=== PATIENT | male | born 1955 | race African-American/Black ===

== ENCOUNTER → 2017-07-21 | Outpatient (CLI) | payer MEDICARE, MEDICAID ==
[~2017-07-21] MED LIST: ASPI-1159 PO; ATOR10TA69 PO; CLOP75TA33 PO; CYM20 PO; FOLI-43 PO; IBUP-2030 PO; LOSA25TA12 PO; MAGN400C PO; MECL-109 PO; MEGE400O PO; METO-293 PO; METO50TA5 PO; MIRT15TA6 PO; OXYB5TAB11 PO; TOLT4CAP PO
[2017-07-21 14:55] LABS: BASOPHILS % 0.3 % (0.0-2.0); EOSINOPHILS % 3.2 % (0.0-5.0); HEMATOCRIT. 36.5 % (42.0-52.0); HEMOGLOBIN. 12.1 g/dL (14.0-18.0); LYMPHOCYTES % 13.8 % (20.0-50.0); MEAN CORPUSCULAR HEMOGLOBIN 28.6 pg (28.0-32.0); MEAN PLATELET VOLUME 8.4 fl (7.4-10.4); MONOCYTES % 7.1 % (2.0-8.0); NEUTROPHILS % 75.6 % (40.0-76.0); PLATELET 246 x1000/uL (130-400); RED BLOOD CELL COUNT 4.24 mill/uL (4.7-6.1); RED CELL DISTRIBUTION WIDTH 15.9 % (11.6-14.6)
[2017-07-21 15:14] LABS: CARBON DIOXIDE 22 mEq/L (21-32); CHLORIDE 111 mEq/L (98-107)
[2017-07-21 15:46] LABS: FOLIC ACID (FOLATE) SERUM > 20.00 ng/mL (>5.38)
== END | disposition home or self-care (01) ==
LOC: LAB 14:03
PROVIDERS: ATTEND Internal Medicine Nephrology
DX: N18.9 Chronic kidney disease, unspecified (principal); Z79.899 Other long term (current) drug therapy
CPT/HCPCS: 36415; 80053; 82746; 83036; 83735; 84443; 85025

== ENCOUNTER 2021-12-08 22:07 | Inpatient (IN) | payer MEDICARE, MEDICAID ==
[~2021-12-08] VITALS: Ht 172.7 cm; Wt 97.5 kg
[~2021-12-08 22:07] MED LIST changes: -ASPI-1159 PO; +ASPI-1497 PO; +LORA1TAB PO; -LOSA25TA12 PO; +LOSA25TA26 PO; -MECL-109 PO; +MECL-159 PO; +METO-539 PO; -METO50TA5 PO; +MIRT-89 PO; -MIRT15TA6 PO; -OXYB5TAB11 PO; +OXYB5TAB16 PO
[2021-12-08] MEDS ORDERED: ONDANSETRON HCL 4MG/2ML INJ IV STA (22:53)
[2021-12-08] MEDS ORDERED: MORPHINE SULFATE 4 MG/ML CPJ (NOT FOR IM USE) IV STA (22:53)
[2021-12-08] MEDS ORDERED: SODIUM CHLORIDE 0.9% 1000ML BAG (SEPSIS BOLUS) IV ONE (23:00)
[2021-12-08] MEDS ORDERED: VANCOMYCIN 1G PREMIX 200 ML IV ONE (23:00)
[2021-12-08] MEDS ORDERED: METRONIDAZOLE 500 MG PREMIX 100 ML IV ONE (23:00)
[2021-12-08] MEDS ORDERED: PIPERACILLIN/TAZ 3.375G PREMIX 50 ML IV ONE (23:00)
[2021-12-09 01:09] LABS: CHLORIDE 124 mEq/L (98-107)
[2021-12-09 01:11] LABS: BASOPHILS % 0.4 % (0.0-2.0); EOSINOPHILS % 1.3 % (0.0-5.0); LYMPHOCYTES % 7.8 % (20.0-50.0); MEAN CORPUSCULAR VOLUME 94.7 fL (80.0-94.0); MEAN PLATELET VOLUME 8.8 fl (7.4-10.4); MONOCYTES % 14.3 % (2.0-8.0); NEUTROPHILS % 76.2 % (40.0-76.0); PLATELET 283 x1000/uL (130-400); RED CELL DISTRIBUTION WIDTH 17.5 % (11.6-14.6)
[2021-12-09] MEDS ORDERED: DEXTROSE 50% WATER 50ML SYRINGE IV ONE (02:15)
[2021-12-09] MEDS ORDERED: CALCIUM CHLORIDE 1GM/10ML SYR IV ONE (02:15)
[2021-12-09] MEDS ORDERED: INSULIN REGULAR (HUMULIN R) 300UNITS/3ML VIAL IV ONE (02:15)
[2021-12-09] MEDS ORDERED: SODIUM BICARBONATE 8.4% 1 MEQ/ML 50ML SYR IV ONE (02:15)
[2021-12-09 06:12] LABS: CLARITY URINE CLOUDY (CLEAR); COLOR URINE YELLOW (YELLOW); KETONES URINE TRACE (NEGATIVE); LEUKOCYTE ESTERASE URINE 3+ (NEGATIVE); NITRITE URINE POSITIVE (NEGATIVE); OCCULT BLOOD URINE 1+ (NEGATIVE); PROTEIN URINE 2+ (NEGATIVE); SPECIFIC GRAVITY URINE 1.017 (1.005-1.030); UROBILINOGEN URINE 0.2 E.U./dL (0.2-1.0)
[2021-12-09] MEDS ORDERED: ONDANSETRON HCL 4MG/2ML INJ IV PRN (07:15)
[2021-12-09] MEDS ORDERED: DIPHENHYDRAMINE 50MG/ML VIAL IV PRN (07:15)
[2021-12-09] MEDS ORDERED: GUAIFENESIN 200MG/10ML SUGAR FREE UDC PO PRN (07:15)
[2021-12-09] MEDS ORDERED: CLONIDINE 0.1MG TABLET PO PRN (07:15)
[2021-12-09] MEDS ORDERED: SODIUM POLYSTYRENE SULFONATE 15 G/60 ML BOT PO NR (07:15)
[2021-12-09] MEDS ORDERED: MORPHINE SULFATE 2 MG/ML CPJ (NOT FOR IM USE) IV PRN (07:15)
[2021-12-09] MEDS ORDERED: SODIUM BICARBONATE 8.4% 1 MEQ/ML 50ML SYR IV NR (07:15)
[2021-12-09] MEDS ORDERED: IPRATROPIUM/ALBUTEROL 0.5-3(2.5)MG/3ML NEB NEB PRN (07:15)
[2021-12-09] MEDS ORDERED: TRAMADOL 50MG TABLET PO PRN (07:15)
[2021-12-09] MEDS ORDERED: DOCUSATE SODIUM 100MG CAPSULE PO PRN (07:15)
[2021-12-09] MEDS ORDERED: NITROGLYCERIN 0.4MG TABLET SL SL PRN (07:15)
[2021-12-09] MEDS ORDERED: MAGNESIUM/ALUMINUM HYDROXIDE/SIMETHICONE 30ML UDC PO PRN (07:15)
[2021-12-09] MEDS ORDERED: ACETAMINOPHEN 325MG TABLET PO PRN (07:15)
[2021-12-09] MEDS ORDERED: NALOXONE HCL 0.4MG/ML VIAL IV PRN (08:00)
[2021-12-09] MEDS: ENOXAPARIN 40MG/0.4ML SYR SUBCUT SCH (08:00)
[2021-12-09] MEDS ORDERED: VANCOMYCIN 1G PREMIX 200 ML IV NR (08:15)
[2021-12-09] MEDS: CITRIC ACID/SODIUM CITRATE SOLN 30ML UDC PO SCH ×3 (08:29→17:45)
[2021-12-09] MEDS ORDERED: PIPERACILLIN/TAZ 3.375G PREMIX 50 ML IV SCH (09:00)
[2021-12-09 10:47] LABS: FOLIC ACID (FOLATE) SERUM 9.1 ng/mL (>5.38)
[2021-12-09 11:00] VITALS: BP 109/54
[2021-12-09 11:30] VITALS: BP 109/54
[2021-12-09 14:33] LABS: *AMPHETAMINES SCREEN URINE NEGATIVE (NEGATIVE); *BARBITURATES SCREEN URINE NEGATIVE (NEGATIVE); *BENZODIAZEPINES SCREEN URINE NEGATIVE (NEGATIVE); *COCAINE SCREEN URINE NEGATIVE (NEGATIVE); CANNABINOID URINE SCREEN NEGATIVE (NEGATIVE); METHADONE URINE SCREEN NEGATIVE (NEGATIVE); OPIATES URINE SCREEN PRESUMTIVE POSITIVE (NEGATIVE); PHENCYCLIDINE URINE SCREEN NEGATIVE (NEGATIVE)
[2021-12-09 15:47] LABS: CREATINE KINASE 207 IU/L (39-308)
[2021-12-09 16:00] VITALS: BP 138/72
[2021-12-09] MEDS ORDERED: LISI-186 MT (16:15)
[2021-12-09] MEDS ORDERED: [UNRECOGNIZED DRUG - CODE] IM (16:15)
[2021-12-09] MEDS ORDERED: ATOR10TA69 MT (16:15)
[2021-12-09] MEDS ORDERED: INSLIS SUBCUT (16:15)
[2021-12-09] MEDS ORDERED: FAMO40TA7 MT (16:15)
[2021-12-09] MEDS ORDERED: AMLO10TA80 PO (16:15)
[2021-12-09] MEDS ORDERED: SODI100G3 PO (16:15)
[2021-12-09] MEDS ORDERED: HYDR12.54 MT (16:15)
[2021-12-09] MEDS ORDERED: DEXTROSE 50% WATER 50ML SYRINGE IV PRN (17:00)
[2021-12-09] MEDS: INSULIN LISPRO 100 UNITS/ML SUBCUT SCH ×2 (17:20→21:00)
[2021-12-09] MEDS: BLOOD SUGAR DIAGNOSTIC STRIP TEST SCH ×2 (17:43→21:51)
[2021-12-09] MEDS ORDERED: PNEUMOCOCCAL 23-VAL P-SAC VAC 0.5 ML IM ONE (18:45)
[2021-12-09] MEDS ORDERED: INFLUENZA VACCINE 05/PF 0.5 ML SYRINGE IM ONE (18:45)
[2021-12-09 20:00] VITALS: BP 114/59
[2021-12-09] MEDS ORDERED: ZOLPIDEM TARTRATE 5MG TABLET PO PRN (21:00)
[2021-12-09] MEDS: PIPERACILLIN/TAZOBACTAM 3.375 G in DEXTROSE 5% WATER 50 ML IV SCH (21:49)
[2021-12-09] MEDS: SODIUM CHLORIDE 0.45% 1,000 ML IV NR (21:50)
[2021-12-09] MEDS: FAMOTIDINE 20MG TABLET PO SCH (21:50)
[2021-12-09 22:21] LABS: CREATINE KINASE 194 IU/L (39-308)
[2021-12-09 22:22] LABS: CREATINE KINASE MB FRACTION 2.8 ng/mL (0.5-3.6)
[2021-12-10] VITALS: BP 111/63
[2021-12-10 04:00] VITALS: BP 126/69
[2021-12-10] MEDS: INSULIN LISPRO 100 UNITS/ML SUBCUT SCH ×4 (07:20→20:49)
[2021-12-10 08:00] VITALS: BP 132/68
[2021-12-10 08:05] LABS: CHLORIDE 129 mEq/L (98-107)
[2021-12-10] MEDS: BLOOD SUGAR DIAGNOSTIC STRIP TEST SCH ×4 (08:15→20:48)
[2021-12-10 08:20] LABS: HEMATOCRIT. 30.7 % (42.0-52.0); HEMOGLOBIN. 10.3 g/dL (14.0-18.0); MEAN CORPUSCULAR HEMOGLOBIN 30.7 pg (28.0-32.0); MEAN CORPUSCULAR VOLUME 91.5 fL (80.0-94.0); MEAN PLATELET VOLUME 8.8 fl (7.4-10.4); PLATELET 231 x1000/uL (130-400); RED BLOOD CELL COUNT 3.35 mill/uL (4.7-6.1); RED CELL DISTRIBUTION WIDTH 16.7 % (11.6-14.6)
[2021-12-10] MEDS: ENOXAPARIN 40MG/0.4ML SYR SUBCUT SCH (09:53)
[2021-12-10] MEDS: PIPERACILLIN/TAZOBACTAM 3.375 G in DEXTROSE 5% WATER 50 ML IV SCH ×2 (09:54→21:53)
[2021-12-10] MEDS: CITRIC ACID/SODIUM CITRATE SOLN 30ML UDC PO SCH ×3 (09:54→16:27)
[2021-12-10] MEDS: SODIUM CHLORIDE 0.45% 1,000 ML IV NR ×2 (09:56→16:23)
[2021-12-10 16:00] VITALS: BP 124/66
[2021-12-10 17:11] LABS: PLATELET ESTIMATE NORMAL
[2021-12-10 20:00] VITALS: BP 113/49
[2021-12-10] MEDS: FAMOTIDINE 20MG TABLET PO SCH (21:53)
[2021-12-11] VITALS: BP 137/64
[2021-12-11] MEDS ORDERED: SODIUM POLYSTYRENE SULFONATE 15 G/60 ML BOT PO NR ×2 (01:00→15:30)
[2021-12-11] MEDS: ACETAMINOPHEN 325MG TABLET PO PRN (01:05)
[2021-12-11] MEDS: DEXTROSE 5% WATER 1,000 ML IV SCH ×4 (01:05→21:43)
[2021-12-11 04:00] VITALS: BP 117/51
[2021-12-11] MEDS: INSULIN LISPRO 100 UNITS/ML SUBCUT SCH ×4 (06:36→21:44)
[2021-12-11] MEDS: BLOOD SUGAR DIAGNOSTIC STRIP TEST SCH ×4 (06:36→21:20)
[2021-12-11 08:00] VITALS: BP 143/45
[2021-12-11] MEDS: PIPERACILLIN/TAZOBACTAM 3.375 G in DEXTROSE 5% WATER 50 ML IV SCH ×2 (09:08→21:43)
[2021-12-11] MEDS: ENOXAPARIN 40MG/0.4ML SYR SUBCUT SCH (09:10)
[2021-12-11] MEDS: CITRIC ACID/SODIUM CITRATE SOLN 30ML UDC PO SCH ×3 (09:10→16:53)
[2021-12-11 12:00] VITALS: BP 127/66
[2021-12-11 16:00] VITALS: BP 140/55
[2021-12-11 20:00] VITALS: BP 144/60
[2021-12-11] MEDS: FAMOTIDINE 20MG TABLET PO SCH (21:43)
[2021-12-12 04:00] VITALS: BP 148/65
[2021-12-12] MEDS: DEXTROSE 5% WATER 1,000 ML IV SCH ×2 (04:00→15:11)
[2021-12-12] MEDS: BLOOD SUGAR DIAGNOSTIC STRIP TEST SCH ×4 (06:41→20:41)
[2021-12-12] MEDS: INSULIN LISPRO 100 UNITS/ML SUBCUT SCH ×4 (06:41→20:41)
[2021-12-12] MEDS: ENOXAPARIN 40MG/0.4ML SYR SUBCUT SCH (07:57)
[2021-12-12 08:00] VITALS: BP 149/71
[2021-12-12] MEDS: CITRIC ACID/SODIUM CITRATE SOLN 30ML UDC PO SCH ×3 (08:58→17:32)
[2021-12-12] MEDS: PIPERACILLIN/TAZOBACTAM 3.375 G in DEXTROSE 5% WATER 50 ML IV SCH ×2 (08:58→20:47)
[2021-12-12 09:30] LABS: HEMATOCRIT. 28.2 % (42.0-52.0); HEMOGLOBIN. 9.3 g/dL (14.0-18.0); MEAN CORPUSCULAR VOLUME 90.7 fL (80.0-94.0); MEAN PLATELET VOLUME 8.9 fl (7.4-10.4); PLATELET 216 x1000/uL (130-400); RED CELL DISTRIBUTION WIDTH 16.9 % (11.6-14.6)
[2021-12-12 12:00] VITALS: BP 138/75
[2021-12-12] MEDS ORDERED: VANCOMYCIN 1G PREMIX 200 ML IV NR (15:00)
[2021-12-12 16:00] VITALS: BP 117/65
[2021-12-12 16:24] LABS: PLATELET ESTIMATE NORMAL
[2021-12-12 20:00] VITALS: BP 126/65
[2021-12-12] MEDS: FAMOTIDINE 20MG TABLET PO SCH (20:47)
[2021-12-13] VITALS: BP 139/71
[2021-12-13 04:00] VITALS: BP 131/71
[2021-12-13] MEDS: BLOOD SUGAR DIAGNOSTIC STRIP TEST SCH ×4 (06:23→21:30)
[2021-12-13] MEDS: INSULIN LISPRO 100 UNITS/ML SUBCUT SCH ×4 (07:20→21:00)
[2021-12-13 08:00] VITALS: BP 116/47
[2021-12-13] MEDS: ENOXAPARIN 30MG/0.3ML SYR SUBCUT SCH (09:15)
[2021-12-13] MEDS: CITRIC ACID/SODIUM CITRATE SOLN 30ML UDC PO SCH ×3 (09:15→17:37)
[2021-12-13] MEDS: PIPERACILLIN/TAZOBACTAM 3.375 G in DEXTROSE 5% WATER 50 ML IV SCH ×2 (09:15→21:23)
[2021-12-13 12:00] VITALS: BP 114/41
[2021-12-13] MEDS: DEXTROSE 5% WATER 1,000 ML IV SCH ×3 (12:39→21:23)
[2021-12-13 16:00] VITALS: BP 122/65
[2021-12-13 20:00] VITALS: BP 133/54
[2021-12-13] MEDS: FAMOTIDINE 20MG TABLET PO SCH (21:23)
[2021-12-14] VITALS: BP 128/53
[2021-12-14 04:00] VITALS: BP 132/58
[2021-12-14] MEDS: DEXTROSE 5% WATER 1,000 ML IV SCH ×2 (05:51→17:27)
[2021-12-14] MEDS: BLOOD SUGAR DIAGNOSTIC STRIP TEST SCH ×4 (06:08→21:00)
[2021-12-14] MEDS: INSULIN LISPRO 100 UNITS/ML SUBCUT SCH ×4 (06:40→21:00)
[2021-12-14 08:00] VITALS: BP 111/54
[2021-12-14] MEDS: PIPERACILLIN/TAZOBACTAM 3.375 G in DEXTROSE 5% WATER 50 ML IV SCH ×2 (09:18→20:17)
[2021-12-14] MEDS: ENOXAPARIN 30MG/0.3ML SYR SUBCUT SCH (09:18)
[2021-12-14] MEDS: CITRIC ACID/SODIUM CITRATE SOLN 30ML UDC PO SCH ×3 (09:18→17:27)
[2021-12-14 12:00] VITALS: BP 116/56
[2021-12-14] MEDS ORDERED: KCL 10MEQ/50ML PREMIX 50 ML IV SCH (14:00)
[2021-12-14 16:00] VITALS: BP 125/62
[2021-12-14 20:00] VITALS: BP 111/64
[2021-12-14] MEDS: FAMOTIDINE 20MG TABLET PO SCH (20:17)
[2021-12-14] MEDS: ACETAMINOPHEN 325MG TABLET PO PRN (23:48)
[2021-12-15] VITALS: BP 115/66
[2021-12-15] MEDS: DEXTROSE 5% WATER 1,000 ML IV SCH ×2 (01:03→14:55)
[2021-12-15 04:00] VITALS: BP 129/70
[2021-12-15] MEDS: INSULIN LISPRO 100 UNITS/ML SUBCUT SCH ×2 (06:20→12:20)
[2021-12-15] MEDS: BLOOD SUGAR DIAGNOSTIC STRIP TEST SCH ×2 (06:20→12:20)
[2021-12-15 08:46] VITALS: BP 129/88
[2021-12-15] MEDS: CITRIC ACID/SODIUM CITRATE SOLN 30ML UDC PO SCH ×2 (10:49→14:56)
[2021-12-15] MEDS: ENOXAPARIN 30MG/0.3ML SYR SUBCUT SCH (10:49)
[2021-12-15 12:24] VITALS: BP 128/59
[2021-12-15 14:07] VITALS: BP 128/59
== END 2021-12-15 16:33 | disposition home or self-care (01) | DRG 682 ==
LOC: ER 22:07 → MICUSO 12-09 03:46 → EDBEDREQTM 12-09 04:07 → EDBEDREQ 12-09 04:07 → 6WST 12-09 11:27
PROVIDERS: ADMIT Internal Medicine; ATTEND Internal Medicine
DX: N17.0 Acute kidney failure with tubular necrosis (principal); J18.9 Pneumonia, unspecified organism; G92.8 Other toxic encephalopathy; N39.0 Urinary tract infection, site not specified; E87.0 Hyperosmolality and hypernatremia; E87.2 Acidosis; C64.9 Malignant neoplasm of unspecified kidney, except renal pelvis; I12.0 Hypertensive chronic kidney disease with stage 5 chronic kidney disease or end stage renal disease; N18.5 Chronic kidney disease, stage 5; E87.5 Hyperkalemia; D63.8 Anemia in other chronic diseases classified elsewhere; E78.00 Pure hypercholesterolemia, unspecified; J45.909 Unspecified asthma, uncomplicated; Z20.822 Contact with and (suspected) exposure to COVID-19; K57.90 Diverticulosis of intestine, part unspecified, without perforation or abscess without bleeding; E87.6 Hypokalemia; C61 Malignant neoplasm of prostate; Z85.038 Personal history of other malignant neoplasm of large intestine; Z93.3 Colostomy status; Z91.018 Allergy to other foods; Z79.899 Other long term (current) drug therapy; Z79.82 Long term (current) use of aspirin; Z86.73 Personal history of transient ischemic attack (TIA), and cerebral infarction without residual deficits; Z90.5 Acquired absence of kidney; R74.8 Abnormal levels of other serum enzymes
CPT/HCPCS: 36415; 71045; 74176; 80048; 80053; 80061; 80202; 80305; 81003; 82550; 82553; 82607; 82728; 82746; 82962; 83036; 83540; 83550; 83605; 83735; 84100; 84145; 84443; 84484; 85025; 87426; 90686; 90732; 93005; 93306; 93970; 97162; 97166; 99291; J1650; J1815; J2270; J2405; J2543; J3370; J3480; J3490; J7030; J7060; J7070

== ENCOUNTER 2024-07-17 19:37 | Inpatient (IN) | payer MEDICARE, MEDICAID ==
[~2024-07-17] VITALS: Ht 172.7 cm; Wt 78.7 kg
[~2024-07-17 19:37] MED LIST changes: -ATOR10TA69 PO; +CHOL500051 PO; -CLOP75TA33 PO; -CYM20 PO; +FAMO20TA8 PO; +FERR-63 PO; +HYDR12.54 PO; -IBUP-2030 PO; +INSLIS SUBCUT; -LORA1TAB PO; -LOSA25TA26 PO; -MECL-159 PO; -MEGE400O PO; +MEGE40TA5 PO; -METO-293 PO; -METO-539 PO; -MIRT-89 PO; -OXYB5TAB16 PO; +SIMV-43 PO; +THIA100T72 PO; -TOLT4CAP PO
[2024-07-17 19:41] VITALS: O2SAT 98
[2024-07-17 20:41] LABS: HEMATOCRIT. 39.9 % (42.0-52.0); HEMOGLOBIN. 11.4 g/dL (14.0-18.0); MEAN CORPUSCULAR HEMOGLOBIN 26.6 pg (28.0-32.0); MEAN CORPUSCULAR HGB CONC 28.4 g/dL (31.0-37.0); MEAN CORPUSCULAR VOLUME 93.5 fL (80.0-94.0); MEAN PLATELET VOLUME 7.9 fl (7.4-10.4); PLATELET 388 x1000/uL (130-400); RED BLOOD CELL COUNT 4.27 mill/uL (4.7-6.1); RED CELL DISTRIBUTION WIDTH 22.9 % (11.6-14.6); WHITE BLOOD COUNT 15.7 x1000/uL (4.5-11.0)
[2024-07-17 20:46] LABS: DIFFERENTIAL COMMENT 1
[2024-07-17 21:53] LABS: ANISOCYTOSIS 2+; PLATELET ESTIMATE NORMAL
[2024-07-17 22:07] LABS: POTASSIUM 3.5 mEq/L (3.5-5.1)
[2024-07-17 22:08] LABS: CALCIUM 9.7 mg/dL (8.7-10.4)
[2024-07-17] MEDS: PIPERACILLIN/TAZO 3.375G/50ML 50 ML IV NR (22:10)
[2024-07-17 22:25] LABS: CREATININE 3.5 mg/dL (0.6-1.3)
[2024-07-17] MEDS ORDERED: ACETAMINOPHEN 325MG TABLET PO PRN (22:45)
[2024-07-17] MEDS ORDERED: DOCUSATE SODIUM 100MG CAPSULE PO PRN (22:45)
[2024-07-17] MEDS ORDERED: MAGNESIUM/ALUMINUM HYDROXIDE/SIMETHICONE 30ML UDC PO PRN (22:45)
[2024-07-17] MEDS ORDERED: NITROGLYCERIN 0.4MG TABLET SL SL PRN (22:45)
[2024-07-17] MEDS ORDERED: ONDANSETRON HCL 4MG/2ML INJ IV PRN (22:45)
[2024-07-17] MEDS ORDERED: GUAIFENESIN 200MG/10ML SUGAR FREE UDC PO PRN (22:45)
[2024-07-17] MEDS ORDERED: CLONIDINE 0.1MG TABLET PO PRN (22:45)
[2024-07-17] MEDS ORDERED: ZOLPIDEM TARTRATE 5MG TABLET PO PRN (22:45)
[2024-07-17] MEDS: AZITHROMYCIN 500MG/250ML 250 ML IV SCH (23:33)
[2024-07-18] MEDS: ACETAMINOPHEN 325MG TABLET PO PRN (00:46)
[2024-07-18 01:38] LABS: LDL CHOLESTEROL 8 mg/dL (5-100); TRIGLYCERIDE 65 mg/dL (0-150)
[2024-07-18 01:40] LABS: HDL CHOLESTEROL < 20 mg/dL (>55)
[2024-07-18 01:44] LABS: T4 FREE 1.26 ng/dL (0.89-1.76); THYROID STIMULATING HORMONE 2.83 uIU/mL (0.55-4.78)
[2024-07-18 01:47] LABS: CHOLESTEROL 40 mg/dL (<200)
[2024-07-18 06:04] LABS: CHLORIDE 102 mEq/L (98-107); POTASSIUM 3.3 mEq/L (3.5-5.1); SODIUM 136 mEq/L (136-145)
[2024-07-18 06:07] LABS: CALCIUM 9.8 mg/dL (8.7-10.4); CARBON DIOXIDE 26 mEq/L (21-32)
[2024-07-18 06:10] LABS: CREATINE KINASE MB FRACTION < 0.5 ng/mL (0.5-3.6); TROPONIN I HIGH SENSITIVITY 29 ng/L (3.0-53)
[2024-07-18 06:12] LABS: CREATINE KINASE 32 IU/L (46-171); CREATININE 3.9 mg/dL (0.6-1.3); GLUCOSE 125 mg/dL (70-105); UREA NITROGEN BLOOD 21 mg/dL (9-23)
[2024-07-18 06:14] LABS: ALANINE AMINOTRANSFERASE 12 IU/L (10-49); ASPARTATE AMINOTRANSFERASE 23 IU/L (<34); BILIRUBIN TOTAL 0.2 mg/dL (0.1-1.0); PHOSPHORUS 3.4 mg/dL (2.5-4.9); PROTEIN TOTAL 7.8 g/dL (6.0-8.3)
[2024-07-18] MEDS: SEVELAMER CARBONATE 800 MG TABLET PO SCH (07:15)
[2024-07-18] MEDS: CEFTRIAXONE 1GM/50ML 50 ML IV SCH (08:39)
[2024-07-18] MEDS: ASPIRIN 81MG EC TABLET PO SCH (08:39)
[2024-07-18] MEDS: ZINC SULFATE 220 MG ( 50 ) CAPSULE PO SCH (08:39)
[2024-07-18] MEDS: ENOXAPARIN 30MG/0.3ML SYR SUBCUT SCH (08:40)
[2024-07-18] MEDS: ASCORBIC ACID 500 MG TABLET PO SCH (08:40)
[2024-07-18] MEDS: FAMOTIDINE 20MG TABLET PO SCH (08:40)
[2024-07-18 10:39] LABS: DIFFERENTIAL COMMENT 1; HEMATOCRIT. 32.9 % (42.0-52.0); HEMOGLOBIN. 9.9 g/dL (14.0-18.0); MEAN CORPUSCULAR HGB CONC 30.1 g/dL (31.0-37.0); MEAN PLATELET VOLUME 8.3 fl (7.4-10.4); PLATELET 378 x1000/uL (130-400); RED BLOOD CELL COUNT 3.81 mill/uL (4.7-6.1); RED CELL DISTRIBUTION WIDTH 20.6 % (11.6-14.6); WHITE BLOOD COUNT 15.2 x1000/uL (4.5-11.0)
[2024-07-18 10:40] LABS: MEAN CORPUSCULAR VOLUME 86.4 fL (80.0-94.0)
[2024-07-18 12:52] VITALS: PULSE 101; RESP 22
[2024-07-18] MEDS: IPRATROPIUM/ALBUTEROL 0.5-3(2.5)MG/3ML NEB NEB PRN (12:52)
[2024-07-18] MEDS: PIPERACILLIN/TAZO 3.375G/50ML 50 ML IV SCH (13:57)
[2024-07-18] MEDS: VANCOMYCIN 1.25GM PMX (XELLIA) 250 ML IV NR (14:41)
[2024-07-18 14:45] LABS: VITAMIN B12 SERUM 1245 pg/mL (211-911)
[2024-07-18 17:15] VITALS: BP 98/55; PULSE 98; RESP 18; TEMP 36.6696; O2SAT 98
[2024-07-18 17:23] LABS: CREATINE KINASE MB FRACTION 1.3 ng/mL (0.5-3.6)
[2024-07-18 17:39] LABS: HEPATITIS B SURFACE ANTIGEN NEGATIVE (Negative)
[2024-07-18 18:00] LABS: HEPATITIS A AB IGM NEGATIVE (Negative)
[2024-07-18 18:01] LABS: HEPATITIS B CORE AB IGM NEGATIVE (Negative); HEPATITIS C AB NON REACTIVE (Neg) (Negative)
[2024-07-18 20:00] VITALS: BP 96/53; PULSE 80; RESP 20; TEMP 36.3918; O2SAT 96
[2024-07-18 21:54] LABS: ANISOCYTOSIS 1+; PLATELET ESTIMATE NORMAL
[2024-07-18 23:15] VITALS: BP 96/53; PULSE 80; RESP 20; TEMP 36.418
[2024-07-19] VITALS (8 sets, daily range): BP systolic 85–131; BP diastolic 34–74; PULSE 74–113; RESP 18–20; TEMP 34.61388–37.00296; O2SAT 96–98
[2024-07-19] MEDS ORDERED: VANCOMYCIN 500MG/100ML IV SCH (14:00)
== END 2024-07-19 12:45 | disposition left against medical advice (07) | DRG 871 ==
LOC: ER 19:37 → 5WST 07-18 00:40 → 7EST 07-18 18:19
PROVIDERS: ADMIT Internal Medicine; ATTEND Internal Medicine
PROC: 5A1D70Z Performance of Urinary Filtration, Intermittent, Less than 6 Hours Per Day (ICD-10-PCS; principal; 2024-07-19)
DX: A41.9 Sepsis, unspecified organism (principal); G92.8 Other toxic encephalopathy; J18.9 Pneumonia, unspecified organism; N18.6 End stage renal disease; I12.0 Hypertensive chronic kidney disease with stage 5 chronic kidney disease or end stage renal disease; E46 Unspecified protein-calorie malnutrition; Z51.5 Encounter for palliative care; E11.22 Type 2 diabetes mellitus with diabetic chronic kidney disease; Z68.26 Body mass index [BMI] 26.0-26.9, adult; D63.1 Anemia in chronic kidney disease; E86.0 Dehydration; Z53.29 Procedure and treatment not carried out because of patient's decision for other reasons; Z99.2 Dependence on renal dialysis
CPT/HCPCS: 36415; 71045; 80048; 80053; 80061; 82550; 82553; 82607; 83036; 83605; 83735; 83880; 84100; 84145; 84439; 84443; 84484; 85025; 86705; 86709; 87340; 90935; 93005; 93306; 93970; 94640; 99285; J0456; J0696; J1650; J2543; J3370